=== PATIENT | male | born 1965 | race Caucasian/White ===

== ENCOUNTER → 2020-11-27 | Outpatient (CLI) | payer BC ==
[~2020-11-27] MED LIST: CIPRO HC OTIC S10 ML OT; DEXILANT60 MG PO; DOXYCYCLINE 10100 MG PO; HCTZ 25MG TAB25 MG PO; JUBLIA TOP; LOPRESSOR 225 MG/TAB; NO HOME MEDICATIONS; NORCO 325 MG-51 TAB PO; RAPAFLO8 MG PO; TOPROL XL 50MG50 MG PO; VITAMIN D 50,1.25 MG PO; VITAMIN D32000 I1 PO
== END ==
LOC: COL.VAS 11-15 14:45
DX: R93.1 Abnormal findings on diagnostic imaging of heart and coronary circulation (principal)

== ENCOUNTER → 2020-11-29 | Outpatient (CLI) | payer BC | LOC: COL.CARD 11-14 11:30 | DX: R07.9 Chest pain, unspecified (principal); E78.00 Pure hypercholesterolemia, unspecified ==